=== PATIENT | male | born 1970 | race Caucasian/White ===

== ENCOUNTER 2016-12-26 11:50 | Emergency (ER) | payer MEDICAID ==
[2016-12-26] MEDS ORDERED: Ondansetron 4 MG/2 ML SDV IVPUSH ONE (12:22)
[2016-12-26] MEDS ORDERED: Sodium Chloride 0.9% 1,000 ML IV ONE (12:23)
--- NOTE | 2016-12-26 12:52 | EDM.PDOC ---
ED HPI GENERAL MEDICAL PROBLEM - General Chief Complaint: Syncope Stated Complaint: LOSS OF CONSCIOUSNESS Time Seen by Provider: 12/26/16 12:27 Source of Information: Reports: Patient History Limitations: Reports: No Limitations - History of Present Illness INITIAL COMMENTS - FREE TEXT/NARRATIVE: Patient brought to ER by his boss, with vertigo. He was stepping up on a tractor step to talk to a co-worker when he became vertiginous and his co- worker told him later that his eyes rolled back. He very briefly had LOC and slumped against the tractor cab but didn't fall. They drove him to [facility] and when walking in he had vertigo again and leaned against a post for a bit. When he came to ER he had another episode again. Each of these three episodes lasted 20-30 seconds. I spoke briefly with the co-worker, Arabella, and she described the eye movement to me which sounds like nystagmus, she said they didn't actually roll back. She couldn't get him to respond to her for 20 seconds but she held his arm while he leaned against the tractor so he didn't fall. Pt tells me he had vertigo for awhile two years ago but milder than today. He used Meclizine prn at that time but hasn't used it recently. No PT. 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 He has an alcohol problem and says his last drink was two weeks ago. I reviewed medical notes from 12/23/16 (C diff/diarrhea) and 12/04/16 (alcohol withdrawal in ER). He says the diarrhea is resolved for 3-4 days and he is off the oral vanco. He went to detox over night from the ER and denies any alcohol since then. He has had recent hospitalizations related to alcohol abuse. He had been going to treatment in [place] 3 days a week until harvest season hit. He went to in [place] last night he says. He says he hasn't eaten anything today yet but normally he does have eggs and sausage for breakfast. - Related Data Allergies Allergy/AdvReac Type Severity Reaction Status Date / Time No Known Allergies Allergy Verified 12/26/16 12:20 Home Meds: Home Meds Carvedilol [Coreg] 25 mg PO BIDMEALS 12/26/16 [History] Cyanocobalamin (Vitamin B-12) [Vitamin B-12] 250 mcg PO DAILY 12/26/16 [History] Disulfiram 500 mg PO DAILY 12/26/16 [History] Eszopiclone [Lunesta] 3 mg PO DAILY 12/26/16 [History] Folic Acid 1 mg PO DAILY 12/26/16 [History] Gabapentin [Neurontin] 300 mg PO DAILY 12/26/16 [History] Lisinopril [Prinivil] 12.5 mg PO DAILY 12/26/16 [History] Lurasidone HCl [Latuda] 120 mg PO BEDTIME 12/26/16 [History] Meclizine [Antivert] 25 mg PO Q6H PRN 12/26/16 [History] Melatonin 10 mg PO BEDTIME 12/26/16 [History] Multivits,Ca,Minerals/Iron/FA [Thera-M] 1 tab PO DAILY 12/26/16 [History] Thiamine [Vitamin B-1] 100 mg PO DAILY 12/26/16 [History] hydrOXYzine Pamoate [Hydroxyzine Pamoate] 50 mg PO Q6H PRN 12/26/16 [History] Social & Family History - Tobacco Use Smoking Status *Q: Former Smoker Used Tobacco, but Quit: No Second Hand Smoke Exposure: No - Caffeine Use Caffeine Use: Reports: Soda - Recreational Drug Use Recreational Drug Use: No ED ROS GENERAL - Review of Systems Review Of Systems: See Below Constitutional: Denies: Fever, Chills, Malaise, Weakness HEENT: Reports: Other (He has ringing in both ears today which isn't usual for him). Denies: Ear Discharge, Ear Pain, Throat Pain, Vision Change (except during vertigo) Respiratory: Denies: Shortness of Breath, Cough Cardiovascular: Reports: Other (CHF, on Coreg). Denies: Chest Pain, Edema Endocrine: Reports: Other (no diabetes) GI/Abdominal: Reports: Nausea. Denies: Abdominal Pain, Constipation, Vomiting : Denies: Dysuria, Flank Pain Musculoskeletal: Reports: No Symptoms Skin: Denies: Cyanosis, Jaundice, Mottled, Pallor, Diaphoresis Neurological: Reports: Difficulty Walking (causes vertigo). Denies: Confusion, Headache, Seizure, Trouble Speaking, Weakness ED EXAM, DIZZINESS - Physical Exam Exam: See Below Exam Limited By: No Limitations General Appearance: Alert, WD/WN, No Apparent Distress Eye Exam: Bilateral Eye: EOMI, Normal Inspection, PERRL Nystagmus: worsens with head to R (very brief during Melvin Liang[place] test; about a second) Ears: Normal External Exam, Normal Canal, Hearing Grossly Normal, Normal TMs Nose: Normal Inspection, No Blood Throat/Mouth: Normal Inspection, Normal Lips, Normal Voice, No Airway Compromise Head Exam: Atraumatic, Normocephalic Vertigo: worsens with head to R Neck: Normal Inspection, Supple, Non-Tender, Full Range of Motion Respiratory/Chest: No Respiratory Distress, Lungs Clear, Normal Breath Sounds, No Accessory Muscle Use Cardiovascular: Normal Peripheral Pulses, Regular Rate, Rhythm, No Murmur GI/Abdominal: Normal Bowel Sounds, Soft, Non-Tender, No Organomegaly, No Distention Neurological: Alert, Normal Mood/Affect, No Motor/Sensory Deficits, Oriented x 3 Extremities: Normal Inspection, Normal Range of Motion Psychiatric: Normal Affect, Normal Mood Skin Exam: Warm, Dry, Intact, Normal Color, No Rash Course - Vital Signs Last Recorded V/S: Last Vital Signs Temp 97.6 F 12/26/16 12:13 Pulse 74 12/26/16 12:13 Resp 18 12/26/16 12:13 BP 105/60 12/26/16 12:13 Pulse Ox 95 12/26/16 12:13 - Orders/Labs/Meds Orders: Active Orders 24 hr Category Date Time Status Blood Glucose Check, Bedside [RC] ONETIME Care 12/26/16 13:18 Active Head wo Cont [CT] Stat Exams 12/26/16 12:40 Ordered DRUG SCREEN, URINE [URCHEM] Stat Lab 12/26/16 13:19 Ordered Labs: Laboratory Tests 12/26/16 12/26/16 12/26/16 Range/Units 12:15 12:32 12:32 WBC 5.9 (5.0-10.0) 10^3/uL RBC 4.33 L (4.50-6.00) 10^6/uL Hgb 13.5 (13.0-17.0) g/dL Hct 40.6 (40.0-52.0) % MCV 93.8 H (82.0-92.0) fL MCH 31.2 H (27.0-31.0) pg MCHC 33.2 (32.0-36.0) g/dL RDW 13.9 (11.5-14.5) % Plt Count 186 (150-300) 10^3/uL MPV 6.8 L (7.4-10.4) fL Neut % (Auto) 69.1 (50.0-70.0) % Lymph % (Auto) 17.2 L (20.0-40.0) % [place] % (Auto) 11.8 H (2.0-8.0) % Eos % (Auto) 1.5 (1.0-3.0) % Baso % (Auto) 0.4 (0.0-1.0) % Neut # (Auto) 4.1 (2.5-7.0) 10^3/uL Lymph # (Auto) 1.0 (1.0-4.0) 10^3/uL [place] # (Auto) 0.7 (0.1-0.8) 10^3/uL Eos # (Auto) 0.1 (0.1-0.3) 10^3/uL Baso # (Auto) 0.0 (0.0-0.1) 10^3/uL Sodium 139 (136-145) mmol/L Potassium 4.2 (3.3-5.3) mmol/L Chloride 104 (98-115) mmol/L Carbon Dioxide 25.5 (21.0-32.0) mmol/L BUN 9 (6-25) mg/dL Creatinine 1.28 H (0.51-1.17) mg/dL Est Cr Clr Drug Dosing 93.54 mL/min Estimated GFR (MDRD) 60 mL/min Glucose 106 (70-110) mg/dL Calcium 9.1 (8.7-10.3) mg/dL Specimen Type Urinvoid Urine Color Dark yellow H (YELLOW) Urine Appearance Clear (CLEAR) Urine pH 7.0 (5.0-9.0) Ur Specific [place] 1.015 (1.005-1.030) Urine Protein Negative (NEGATIVE) mg/dL Urine Glucose (UA) Negative (NEGATIVE) mg/dL Urine Ketones Negative (NEGATIVE) mg/dL Urine Occult Blood Negative (NEGATIVE) Urine Nitrite Negative (NEGATIVE) Urine Bilirubin Negative (NEGATIVE) Urine Urobilinogen 0.2 (0.2-1.0) E.U./dL Ur Leukocyte Esterase Negative (NEGATIVE) Urine RBC 0-5 /HPF Urine WBC Not seen /HPF Ur Epithelial Cells Rare /LPF Urine Bacteria Not seen (NONE TO FEW) /HPF Hyaline Casts Many H (NEGATIVE) /LPF Urine Mucus Moderate H (NEGATIVE) /LPF Ethyl Alcohol (0-3) mg/dL 12/26/16 Range/Units 12:32 WBC (5.0-10.0) 10^3/uL RBC (4.50-6.00) 10^6/uL Hgb (13.0-17.0) g/dL Hct (40.0-52.0) % MCV (82.0-92.0) fL MCH (27.0-31.0) pg MCHC (32.0-36.0) g/dL RDW (11.5-14.5) % Plt Count (150-300) 10^3/uL MPV (7.4-10.4) fL Neut % (Auto) (50.0-70.0) % Lymph % (Auto) (20.0-40.0) % [place] % (Auto) (2.0-8.0) % Eos % (Auto) (1.0-3.0) % Baso % (Auto) (0.0-1.0) % Neut # (Auto) (2.5-7.0) 10^3/uL Lymph # (Auto) (1.0-4.0) 10^3/uL [place] # (Auto) (0.1-0.8) 10^3/uL Eos # (Auto) (0.1-0.3) 10^3/uL Baso # (Auto) (0.0-0.1) 10^3/uL Sodium (136-145) mmol/L Potassium (3.3-5.3) mmol/L Chloride (98-115) mmol/L Carbon Dioxide (21.0-32.0) mmol/L BUN (6-25) mg/dL Creatinine (0.51-1.17) mg/dL Est Cr Clr Drug Dosing mL/min Estimated GFR (MDRD) mL/min Glucose (70-110) mg/dL Calcium (8.7-10.3) mg/dL Specimen Type Urine Color (YELLOW) Urine Appearance (CLEAR) Urine pH (5.0-9.0) Ur Specific [place] (1.005-1.030) Urine Protein (NEGATIVE) mg/dL Urine Glucose (UA) (NEGATIVE) mg/dL Urine Ketones (NEGATIVE) mg/dL Urine Occult Blood (NEGATIVE) Urine Nitrite (NEGATIVE) Urine Bilirubin (NEGATIVE) Urine Urobilinogen (0.2-1.0) E.U./dL Ur Leukocyte Esterase (NEGATIVE) Urine RBC /HPF Urine WBC /HPF Ur Epithelial Cells /LPF Urine Bacteria (NONE TO FEW) /HPF Hyaline Casts (NEGATIVE) /LPF Urine Mucus (NEGATIVE) /LPF Ethyl Alcohol 88 H (0-3) mg/dL Meds: Medications Discontinued Medications Generic Name Dose Route Start Last Admin Trade Name Jeff PRN Reason Stop Dose Admin Sodium Chloride 1,000 mls @ 999 mls/hr 12/26/16 12:23 Normal Saline IV 12/26/16 13:23 .BOLUS ONE Ondansetron HCl 4 mg 12/26/16 12:22 12/26/16 12:41 Zofran IVPUSH 12/26/16 12:23 4 mg ONETIME ONE Administration - Re-Assessments/Exams Free Text/Narrative Re-Assessment/Exam: 12/26/16 13:36 Although he maintains no alcohol for two weeks TARUN is [address] shows "Question of minimal hyperdensity in interhemispheric region at level of septum pellucidum" that radiologist recommends further studies to evaluate if symptoms persist. 12/26/16 14:01 Discussed findings and recommendations with patient and his boss who accompanies him today. His boss is well aware of his alcohol problem already. I instructed patient to avoid driving or operating heavy equipment while having the vertigo. Patient discharged in stable condition. Departure - Departure Time of Disposition: 13:56 Disposition: Home, Self-Care 01 Condition: Good Clinical Impression: Vertigo, Alcohol abuse Alcohol intoxication Qualifiers: Complication of substance-induced condition: with unspecified complication Qualified Code(s): F10.929 - Alcohol use, unspecified with intoxication, unspecified - Discharge Information Referrals: Elton Tadeo PA-C [Primary Care Provider] - Forms: ED Department Discharge Additional Instructions: 1. Avoid alcohol. 2. Use Meclizine as directed for vertigo. 3. Follow up with PCP early next week for evaluation of vertigo if it continues. You may need an MRI to further evaluate the questionable abnormality on head CT. 4. Discuss alcohol treatment options with your PCP. - My Orders Last 24 Hours: My Active Orders 12/26/16 12:40 Head wo Cont [CT] Stat 12/26/16 13:18 Blood Glucose Check, Bedside [RC] ONETIME 12/26/16 13:19 DRUG SCREEN, URINE [URCHEM] Stat - Assessment/Plan Last 24 Hours: My Active Orders 12/26/16 12:40 Head wo Cont [CT] Stat 12/26/16 13:18 Blood Glucose Check, Bedside [RC] ONETIME 12/26/16 13:19 DRUG SCREEN, URINE [URCHEM] Stat
== END 2016-12-26 14:05 | disposition home or self-care (01) ==
LOC: KA.ED 11:50
DX: R42 Dizziness and giddiness (principal); F10.129 Alcohol abuse with intoxication, unspecified; Y90.4 Blood alcohol level of 80-99 mg/100 ml; Z87.891 Personal history of nicotine dependence
CPT/HCPCS: 36415; 70450; 80048; 80305; 81001; 82962; 85025; 96361; 96374; 99284; G0480; J2405; J7030